=== PATIENT | male | born 1985 | race African-American/Black ===

== ENCOUNTER 2017-08-10 09:18 | Emergency (ER) | payer SELFPAY ==
[2017-08-10] MEDS ORDERED: Aspirin 325 MG TAB ONE (09:38)
[2017-08-10 10:09] LABS: Hemoglobin 15.2 g/dL (14.0-18.0); Mean Corpuscular Volume 88.6 fL (80.0-94.0); Red Blood Cell (RBC) Count 5.07 mill/uL (4.70-6.10); White Blood Cell (WBC) Count 5.2 thou/uL (4.8-10.8)
[2017-08-10 10:10] LABS: #Eosinphils 0.2 thou/uL (0.0-0.7); #Lymphocytes 2.2 thou/uL (1.20-3.40); #Monocytes 0.4 thou/uL (0.11-0.59); #Neutrophils 2.4 thou/uL (1.40-6.50); %Basophils 0.6 % (0.0-1.0); %Eosinophils 3.5 % (0.0-10.0); %Lymphocytes 42.1 % (21.0-51.0); %Monocytes 6.8 % (0.0-10.0); Mean Corpuscular HGB CONC 33.8 g/dL (32.0-36.0); Mean Corpuscular Hemoglobin 29.9 pg (27.0-31.0); Mean Platelet Volume 9.1 fL (7.4-10.4); Platelet Count 178 thou/uL (130-400)
[2017-08-10 10:19] LABS: ALT (SGPT) 25 U/L (8-55); AST (SGOT) 32 U/L (5-34); Albumin 4.1 g/dL (3.5-5.0); Alkaline Phosphatase 60 U/L (40-150); Anion Gap 14 mmol/L (10-20); BUN (Urea Nitrogen) 13 mg/dL (8.9-20.6); Bilirubin, Total 0.4 mg/dL (0.2-1.2); CK (CPK) 952 U/L (30-200); Calc. Creatinine Clearance 0 mL/min (70-130); Calcium 9.1 mg/dL (7.8-10.44); Carbon Dioxide 22 mmol/L (22-29); Chloride 109 mmol/L (98-107); Estimated GFR-MDRD Greater than 90; Globulin 2.9 g/dL (2.4-3.5); Glucose 89 mg/dL (70-105); Potassium 3.9 mmol/L (3.5-5.1); Sodium 141 mmol/L (136-145)
[2017-08-10 10:21] LABS: CKMB 2.1 ng/mL (0-6.6)
[2017-08-10] MEDS ORDERED: Mag-Al Plus 1200 MG/1200 MG/120 MG/30 ML UDCUP ONE (10:36)
--- NOTE | 2017-08-10 10:38 | RAD ---
CHEST 2 VIEWS: Date: 08/10/17 HISTORY: Chest pain. COMPARISON: Chest radiograph from 2013. FINDINGS: Lungs are clear. No pneumothorax or effusion. Cardiac silhouette and mediastinal contours within norm al limits. No acute osseous abnormality. IMPRESSION: No acute intrathoracic abnormality. POS: [facility]
== END 2017-08-10 10:45 | disposition home or self-care (01) ==
LOC: MADERS 09:18
DX: M94.0 Chondrocostal junction syndrome [Tietze] (principal); K29.00 Acute gastritis without bleeding; F17.210 Nicotine dependence, cigarettes, uncomplicated
CPT/HCPCS: 71046; 80053; 82553; 83880; 84484; 85025; 85379; 93005

== ENCOUNTER 2018-01-05 05:20 | Emergency (ER) | payer SELFPAY ==
[2018-01-05] MEDS ORDERED: Ibuprofen 800 MG TAB ONE (06:30)
--- NOTE | 2018-01-05 08:46 | RAD ---
LEFT WRIST THREE VIEWS: HISTORY: Fell on outstretched hand yesterday. Pain. COMPARISON: None. FINDINGS: On the AP projection, there is irregularity involving the triquetral bone. The possibility of a frac ture cannot be excluded. Distal carpal row is unremarkable. Radial carpal joint space is preserved. IMPRESSION: Possible triquetral fracture, best appreciated on the anterior-posterior projection. Correlate for p oint tenderness. Immobilization and follow-up imaging if clinically warranted. CODE T POS: [facility]
--- NOTE | 2018-01-05 08:50 | RAD ---
LEFT FOREARM TWO VIEWS: HISTORY: Injury. Pain. COMPARISON: None. FINDINGS: No fracture. No cortical irregularity or periosteal reaction. IMPRESSION: No fracture. POS: [facility]
== END 2018-01-05 06:40 | disposition home or self-care (01) ==
LOC: MADERS 05:20
DX: S63.502A Unspecified sprain of left wrist, initial encounter (principal); W19.XXXA Unspecified fall, initial encounter

== ENCOUNTER 2018-05-23 07:22 | Emergency (ER) | payer OTHER, SELFPAY ==
[2018-05-23] MEDS ORDERED: Ibuprofen 800 MG TAB ONE (07:47)
== END 2018-05-23 08:20 | disposition home or self-care (01) ==
LOC: MADERS 07:22
DX: J06.9 Acute upper respiratory infection, unspecified (principal); F17.210 Nicotine dependence, cigarettes, uncomplicated
CPT/HCPCS: 87081; 87430; 87804; 99283

== ENCOUNTER 2018-05-25 09:52 | Emergency (ER) | payer OTHER ==
[2018-05-25] MEDS ORDERED: Ketorolac Tromethamine 60 MG/2 ML VIAL ONE (10:37)
== END 2018-05-25 10:48 | disposition home or self-care (01) ==
LOC: MADERS 09:52
DX: B34.9 Viral infection, unspecified (principal); F17.210 Nicotine dependence, cigarettes, uncomplicated; Z79.899 Other long term (current) drug therapy
CPT/HCPCS: 96372; J1885

== ENCOUNTER 2018-09-07 22:46 | Emergency (ER) | payer OTHER, SELFPAY | END 2018-09-07 23:07 | disposition home or self-care (01) | LOC: MADERS 22:46 | DX: H65.92 Unspecified nonsuppurative otitis media, left ear (principal); F17.210 Nicotine dependence, cigarettes, uncomplicated; Z71.6 Tobacco abuse counseling | CPT/HCPCS: 99406 ==

== ENCOUNTER 2018-12-23 19:08 | Emergency (ER) | payer OTHER, SELFPAY ==
[2018-12-23 19:38] LABS: Bilirubin Negative (Negative); Blood, Urine Negative (Negative); Clarity Clear (Clear); Glucose, Urine (Dipstick) Negative (Negative); Leukocyte Negative (Negative); Nitrite Negative (Negative); Protein, Urine (Dipstick) Trace mg/dL (Neg-Trace); Urobilinogen 0.2 mg/dL (Less than 2)
== END 2018-12-23 19:50 | disposition home or self-care (01) ==
LOC: MADERS 19:08
DX: M54.5 Low back pain (principal); F17.210 Nicotine dependence, cigarettes, uncomplicated; Z71.6 Tobacco abuse counseling
CPT/HCPCS: 81003; 99406

== ENCOUNTER 2020-09-30 06:05 | Emergency (ER) | payer BC, SELFPAY ==
[2020-09-30] MEDS ORDERED: Sodium Chloride 0.9% 1,000 ML ONE (06:49)
[2020-09-30] MEDS ORDERED: Ibuprofen 800 MG TAB ONE (06:49)
[2020-09-30] MEDS ORDERED: Ondansetron PF 4 MG/2 ML Vial ONE (06:49)
[2020-09-30 07:05] LABS: ALT (SGPT) 19 U/L (8-55); AST (SGOT) 22 U/L (5-34); Albumin 4.2 g/dL (3.5-5.0); Alkaline Phosphatase 75 U/L (40-110); Anion Gap 18 mmol/L (10-20); BUN (Urea Nitrogen) 11 mg/dL (8.9-20.6); Bilirubin, Total 0.5 mg/dL (0.2-1.2); CRP (Inflammatory) 9.53 mg/dL (= or < 0.5); Calc. Creatinine Clearance 0 mL/min (70-130); Calcium 8.5 mg/dL (7.8-10.44); Carbon Dioxide 20 mmol/L (22-29); Chloride 106 mmol/L (98-107); Globulin 2.7 g/dL (2.4-3.5); Glucose 110 mg/dL (70-105); Potassium 4.1 mmol/L (3.5-5.1); Protein, Total 6.9 g/dL (6.0-8.3); Sodium 140 mmol/L (136-145)
[2020-09-30 07:07] LABS: Hemoglobin 15.7 g/dL (14.0-18.0); MDiff Complete? YES; Manual Diff?? YES; Mean Corpuscular HGB CONC 31.6 g/dL (32.0-36.0); Mean Corpuscular Hemoglobin 28.6 pg (27.0-31.0); Mean Corpuscular Volume 90.4 fL (78.0-98.0); Mean Platelet Volume 11.3 fL (7.4-10.4); Platelet Count 147 thou/uL (130-400); RBC Distribution Width 12.5 % (11.5-14.5); White Blood Cell (WBC) Count 5.4 thou/uL (4.8-10.8)
[2020-09-30 07:08] LABS: Band 6 % (5-11); Eosinophils 2 % (0-10); Lymphocytes 20 % (21-51); Monocytes 2 % (0-10); Neutrophil 70 % (42-75)
[2020-09-30] MEDS ORDERED: Lidocaine 1% 20 ML MDV ONE (07:41)
[2020-09-30] MEDS ORDERED: cefTRIAXone\\ROCEPHIN 2 GM VIAL ONE ×2 (08:00)
[2020-09-30] MEDS ORDERED: Sodium Chloride 0.9% 100 ML ONE (08:00)
[2020-09-30] MEDS ORDERED: Sodium Chloride 0.9% 250 ML 250 ML ONE (08:36)
[2020-09-30 10:26] LABS: CSF, Glucose 64 mg/dl (40-70); CSF, Protein 49 mg/dL (15-40)
[2020-09-30 10:37] LABS: Color Of CSF Supernatant COLORLESS (Colorless); Tube # 1; Unspun CSF Color RED (Colorless)
[2020-09-30 11:23] LABS: CSF Source CSF; Clarity Clear (Clear); Tube # 3
[2020-09-30 21:35] LABS: SARS-CoV-2 PCR by NAA Not Detected (NotDetected)
== END 2020-09-30 12:00 | disposition home or self-care (01) ==
LOC: MADERS 06:05
DX: R50.9 Fever, unspecified (principal); R51.9 Headache, unspecified; Z20.822 Contact with and (suspected) exposure to COVID-19; F17.210 Nicotine dependence, cigarettes, uncomplicated
CPT/HCPCS: 36415; 62270; 70450; 71045; 80053; 82550; 82945; 83605; 84157; 84484; 85025; 86140; 87040; 87070; 87081; 87205; 87430; 87635; 87804; 89051; 93005; 94760; 96365; 96375; J0696; J2405; J3370; J3490; J7050; U0003; U0005

== ENCOUNTER 2023-03-17 13:25 | Emergency (ER) | payer OTHER, BC ==
[2023-03-17] MEDS ORDERED: Lidocaine 4% Patch ONE (13:48)
[2023-03-17] MEDS ORDERED: Cyclobenzaprine 10 MG TAB ONE (13:48)
[2023-03-17] MEDS ORDERED: Lidocaine-Prilocaine 2.5% Cream 5 GM TUBE ONE (13:48)
[2023-03-17] MEDS ORDERED: Ibuprofen 800 MG TAB ONE (13:48)
[2023-03-17] MEDS ORDERED: Acetaminophen 500 MG TAB ONE (13:48)
== END 2023-03-17 14:00 | disposition home or self-care (01) ==
LOC: MADERS 13:25
DX: S16.1XXA Strain of muscle, fascia and tendon at neck level, initial encounter (principal); M54.6 Pain in thoracic spine; F17.210 Nicotine dependence, cigarettes, uncomplicated; V29.99XA Rider (driver) (passenger) of other motorcycle injured in unspecified traffic accident, initial encounter
CPT/HCPCS: 99283

== ENCOUNTER 2024-04-03 18:21 | Emergency (ER) | payer BC ==
[2024-04-03] MEDS ORDERED: Fluorescein Opthalmic Strip ONE (18:43)
[2024-04-03] MEDS ORDERED: Tetracaine 0.5% PF 4 ML BOT ONE (18:43)
[2024-04-03] MEDS ORDERED: Morphine 4 MG/ML VIAL ONE (19:22)
== END 2024-04-03 20:08 | disposition home or self-care (01) ==
LOC: MADERS 18:21
DX: S00.12XA Contusion of left eyelid and periocular area, initial encounter (principal); I10 Essential (primary) hypertension; F17.210 Nicotine dependence, cigarettes, uncomplicated; W22.8XXA Striking against or struck by other objects, initial encounter
CPT/HCPCS: 70486; J2272

== ENCOUNTER 2024-04-24 10:52 | Emergency (ER) | payer BC | END 2024-04-24 12:25 | disposition home or self-care (01) | LOC: MADERS 10:52 | DX: M76.51 Patellar tendinitis, right knee (principal); F17.210 Nicotine dependence, cigarettes, uncomplicated | CPT/HCPCS: 99283 ==

== ENCOUNTER 2025-03-15 19:30 | Emergency (ER) | payer BC, SELFPAY ==
[2025-03-15] MEDS ORDERED: Fluconazole 100 MG TAB ONE (20:33)
== END 2025-03-15 20:45 | disposition home or self-care (01) ==
LOC: MADERS 19:30
DX: B35.3 Tinea pedis (principal); E66.9 Obesity, unspecified; F17.210 Nicotine dependence, cigarettes, uncomplicated
CPT/HCPCS: 36416; 99283